=== PATIENT | male | born 1975 | race Two or more races ===

== ENCOUNTER 2019-08-02 00:58 | Emergency (ER) | payer MEDICAID ==
[~2019-08-02] VITALS: Ht 180.3 cm; Wt 126.1 kg
[2019-08-02 01:18] VITALS: BP 145/75
[2019-08-02] MEDS ORDERED: ALBUTEROL SULFATE INH 18 GM HFA.AER.AD IH PRN (02:00)
--- NOTE | 2019-08-02 02:08 | NUR ---
MD ORDERED VENTOLIN INHALER BUT NOT AVAILABLE IN ER NOR ON THE FLOORS. RN CASE MANAGERS EVEN CHECKED BUT NO MEDS AVAILABLE. MD IS AWARE. PRESCRIPTION GIVEN TO PT. PT IS NOT CURRENTLY ON ANY DISTRESS AND MD IS OK TO DC WITHOUT THE MEDS
--- NOTE | 2019-08-02 02:10 | NUR ---
Patient discharged to home in stable condition. Written and verbal after care instructions given. Patient verbalizes understanding of instruction. Pt ambulatory with a steady gait
== END 2019-08-02 02:11 | disposition home or self-care (01) ==
LOC: ER 01:01
DX: J45.909 Unspecified asthma, uncomplicated (principal); Z76.0 Encounter for issue of repeat prescription